=== PATIENT | male | born 1955 | race Caucasian/White ===

== ENCOUNTER 2024-04-23 10:29 | Outpatient (CLI) | payer MEDICARE, SELFPAY | END 2024-04-23 10:30 | disposition home or self-care (01) | PROVIDERS: PCP Family Medicine; Visit Provider Family Medicine | DX: M54.16 Radiculopathy, lumbar region (principal); M51.36 Other intervertebral disc degeneration, lumbar region | CPT/HCPCS: 62323; J0702; Q9966 ==

== ENCOUNTER 2025-02-25 12:23 | Outpatient (CLI) | payer MEDICARE, SELFPAY | END 2025-02-25 12:24 | disposition home or self-care (01) | LOC: INJ CL 12:25 | PROVIDERS: PCP Family Medicine; Visit Provider Family Medicine | DX: M54.16 Radiculopathy, lumbar region (principal); M51.369 Other intervertebral disc degeneration, lumbar region without mention of lumbar back pain or lower extremity pain | CPT/HCPCS: 62323; J0702; Q9966 ==

== ENCOUNTER 2025-06-12 10:41 | Outpatient (CLI) | payer MEDICARE, SELFPAY ==
--- NOTE | 2025-06-12 11:00 | CRLHL7_ITS ---
For Patients: As a result of the Century Cures Act, medical imaging exams and procedure reports are released immediately into your electronic medical record. You may view this report before your referring provider. If you have questions, please contact your health care provider. Indication: malignant neoplasm of splenic flexure Technique: CT Chest/Abd/Pelvis W/ 100CC [id number] intravenous contrast Please note that all CT scans at this facility use dose modulation, iterative reconstruction, and/or weight-based dosing when appropriate to reduce radiation dose to as low as reasonably achievable. Comparison: 05/28/2024 Findings: In the chest, there is a nodule within the right thyroid lobe which measures 2.0 cm. No pleural or pericardial effusion. No adenopathy. Mild subareolar gynecomastia is present. Perifissural nodule on the left measures 3 millimeters, 3/36. Additional perifissural nodule on the right measures 6 millimeters, 3/46. 3 millimeter nodule right lower lobe, 3/56. No fracture. In the abdomen, the spleen is enlarged, as before, measuring 20.4 cm. Small hiatal hernia is present which measures 2.6 millimeters. Sub cm cysts within the liver are unchanged. Adrenal glands are unchanged. Multiple bilateral renal cysts are present which measure up to 9.8 cm. No hydronephrosis. Left renal calcifications are noted measuring up to 7 millimeters. Pancreas is unremarkable. Gallbladder is incompletely distended. Subcentimeter aortocaval lymph node is again noted. Atherosclerotic changes. No aneurysm. Postoperative changes of partial colectomy are present. Chronic mild stranding within the central mesenteric fat. Stable density within the left posterior iliac bone. Degenerative changes lumbar spine without fracture. In the pelvis, the bladder is unremarkable. Prostate calcifications are present. Small fat filled inguinal hernia is again noted. No bowel obstruction or free air. No free fluid or abscess. Impression: No significant change. Stable bilateral pulmonary nodules compared to 05/28/2024. Stable postop changes unchanged from 05/28/2024. Chronic splenomegaly. Chronic bilateral renal cysts and nonobstructing left renal calculi. Please note that all CT scans at this facility use dose modulation, iterative reconstruction, and/or weight-based dosing when appropriate to reduce radiation dose to as low as reasonably achievable. Dictated by Fidel Cm MD @ 06/12/2025 12:16:10 PM (Electronically Signed)
== END 2025-06-12 10:42 | disposition home or self-care (01) ==
LOC: CT 10:42
PROVIDERS: PCP Family Medicine; Visit Provider Clinical Nurse Specialist
DX: C18.5 Malignant neoplasm of splenic flexure (principal); R91.8 Other nonspecific abnormal finding of lung field; R16.1 Splenomegaly, not elsewhere classified; N28.1 Cyst of kidney, acquired
CPT/HCPCS: 71260; 74177; Q9967